=== PATIENT | male | born 1990 | race Caucasian/White ===

== ENCOUNTER 2019-12-29 21:26 | Emergency (ER) | payer SELFPAY ==
[~2019-12-29] VITALS: Ht 167.6 cm; Wt 100.2 kg
[2019-12-29 21:27] VITALS: BP 150/103; Ht 167.6 cm; Wt 100.2 kg
== END 2019-12-29 21:56 | disposition home or self-care (01) ==
LOC: ED 21:26
DX: U07.1 COVID-19 (principal)
CPT/HCPCS: U0003-CS